=== PATIENT | male | born 1950 | race Caucasian/White ===

== ENCOUNTER → 2023-02-10 09:11 | Outpatient (CLI) | payer MEDICARE, BC, SELFPAY ==
--- NOTE | 2023-02-10 09:16 | DI.MRI.S_ITS ---
PROCEDURE: MR PELVIS WO/W CON INDICATIONS: Elevated PSA TECHNIQUE: Coronal HASTE, axial T1 FSE with fat saturation, 3-plane nonbreath-hold T2 FSE. After the administration of contrast, dynamic axial, delayed axial and coronal VIBE or 2-D FLASH with fat saturation through the pelvis. Optional diffusion weighted imaging and ADC may be performed. COMPARISON: None. FINDINGS: Image quality: Diffusion weighted and dynamic contrast enhanced images are diagnostic. Prostate: Gland size is 6.2 x 3.8 x 5.3 cm; ellipsoid gland volume is 65 mL. There are ovoid foci of signal void within the anterior transition zone of the prostate gland, possible fiducial markers and/or coarse calcifications. Lesion #1: Size: 0.7 x 0.3 cm Location: Left posterior medial peripheral zone, mid gland (axial ADC series 24, image 15) T2 signal: Heterogeneous signal intensity DWI/ADC signal: Hypointense on ADC images with corresponding DWI hyperintensity DCE: Negative CHERYLE: No definite CHERYLE identified. Seminal vesicle invasion: Negative PI-RADS: T2 signal - 3; ADC - 3; DCE - negative; Overall score: PI-RADS 3. Lesion #2: Size: 0.5 x 0.3 cm Location: Right posterolateral peripheral zone, mid gland (series 24, image 15) T2 signal: Heterogeneous signal intensity DWI/ADC signal: Hypointense on ADC images, no substantial associated DWI hyperintensity. DCE: Negative CHERYLE: Negative Seminal vesicle invasion: Negative PI-RADS: T2 signal - 3; ADC - 3; DCE - negative; Overall score: PI-RADS 3. Both findings appear distinct from the central zone visualized more superiorly. Genitourinary system: Bladder wall thickness is normal. Distal ureters are non distended. Bowel and peritoneum: No pathologic free pelvic fluid. Inferior colon and small bowel loops are normal in caliber. Nodes and vessels: No pelvic or inguinal adenopathy by size criteria. Iliac vessels are normal in caliber. Bones: Marrow demonstrates unremarkable overall signal, without lesions to suggest metastases. IMPRESSION: 1. Two small PI-RADS Category 3 lesions as above. 2. No suspicious lymph nodes identified in the imaged pelvis. Dictated by: Christiano Xie M.D. on 02/11/2023 at 10:45 Approved by: Christiano Xie M.D. on 02/11/2023 at 11:54
== END ==
PROVIDERS: PCP Nurse Practitioner Family; Referring Provider Specialist; Visit Provider Specialist
DX: R97.20 Elevated prostate specific antigen [PSA] (principal); N42.89 Other specified disorders of prostate
CPT/HCPCS: 72197; A9579